=== PATIENT | male | born 1990 | race Caucasian/White ===

== ENCOUNTER → 2021-06-13 12:52 | Outpatient (BNVA) | payer OTHER, SELFPAY | PROVIDERS: PCP Physician Assistant; Visit Provider Urology ==

== ENCOUNTER 2021-06-15 10:06 | Outpatient (REF) | payer OTHER, SELFPAY ==
[2021-06-15 10:54] LABS: Hematocrit 49.6 % (42-52); Hemoglobin 17.3 g/dl (14.0-18.0); Mean Corpuscular HGB Conc 34.9 g/dl (31.0-36.0); Mean Corpuscular Hemoglobin 30.8 pg (27.0-33.0); Mean Corpuscular Volume 88.4 fL (80-98); Mean Platelet Volume 9.4 fL (9.4-12.4); Platelet Count 211 X10*3/uL (160-400); Red Blood Count 5.61 X10*6/uL (4.60-5.80); Red Cell Distribution Width 11.3 % (11.0-16.0); White Blood Count 7.9 X10*3/uL (4.8-10.8)
[2021-06-15 11:17] LABS: Alanine Aminotransferase 27 U/L (0-40); Albumin Level 4.7 g/dL (3.5-5.0); Alkaline Phosphatase 94 U/L (39-117); Anion Gap 11 (12-20); Aspartate Amino Transferase 24 U/L (5-37); Bilirubin Total 1.5 mg/dL (0.0-1.0); Blood Urea Nitrogen 18 mg/dL (9-16); Calcium 10.1 mg/dL (8.4-10.2); Carbon Dioxide 29 mmol/L (22-29); Chloride 106 mmol/L (96-108); Cholesterol 217 mg/dL; Estimated Glomerular Filt Rate > 60; Glucose Fasting 76 mg/dL (60-99); HDL Cholesterol 56 mg/dL; LDL Cholesterol Calculated 146 mg/dl; Potassium 5.5 mmol/L (3.3-5.1); Sodium 140 mmol/L (135-145); Total Protein 7.4 g/dL (6.5-8.0); Triglycerides 76 mg/dL
[2021-06-15 11:26] LABS: Estimated Average Glucose 97 mg/dL
[2021-06-15 11:38] LABS: TSH reflex Free T4 0.48 uIU/mL (0.32-4.0)
[2021-06-16 08:31] LABS: Lyme Abs Screen <0.90 index
== END 2021-06-15 10:07 | disposition home or self-care (01) ==
LOC: HO.LAB 10:06
PROVIDERS: PCP Physician Assistant; Visit Provider Physician Assistant
DX: Z13.29 Encounter for screening for other suspected endocrine disorder (principal); Z13.220 Encounter for screening for lipoid disorders; R42 Dizziness and giddiness; I10 Essential (primary) hypertension
CPT/HCPCS: 36415; 80053; 80061; 83036; 84443; 85027; 86617; 86618

== ENCOUNTER → 2021-10-11 10:42 | Outpatient (BNVA) | payer OTHER, SELFPAY | PROVIDERS: PCP Physician Assistant; Visit Provider Urology | DX: Z30.2 Encounter for sterilization (principal); F41.8 Other specified anxiety disorders | CPT/HCPCS: 55250 ==

== ENCOUNTER → 2022-01-03 15:06 | Outpatient (BNVA) | payer OTHER, SELFPAY | PROVIDERS: PCP Physician Assistant; Visit Provider Urology | DX: F41.8 Other specified anxiety disorders (principal) ==

== ENCOUNTER 2022-01-05 07:15 | Outpatient (REF) | payer OTHER, SELFPAY ==
--- NOTE | ~2022-01-05 | CT_ITS ---
CT HEAD WITHOUT CONTRAST CLINICAL INFORMATION: Disorders of vestibular function. COMPARISON: Head CT 03/05/2010. TECHNIQUE: Contiguous axial imaging was performed from the skull base to vertex without intravenous administration of contrast. This CT examination was performed using dose optimization techniques as appropriate, variously including the following: *Automated exposure control *Adjustment of mA and/or kV according to patient size (this includes techniques or standardized protocols for targeted exams where dose is matched to indication/reason for exam; i.e. extremities or head) *Use of iterative reconstruction technique FINDINGS: There is no intracranial hemorrhage, hydrocephalus, extra-axial surface collection, midline shift, or other herniation pattern. Silverio to white matter differentiation is diffusely maintained without evidence of an evolved acute territorial infarct. The basilar cisterns are preserved. No significant soft tissue abnormality. No acute osseous abnormality. The paranasal sinuses and the mastoid air cells are well aerated. CT/CT head/brain wo con IMPRESSION: No acute intracranial abnormality.
== END 2022-01-05 07:16 | disposition home or self-care (01) ==
LOC: HO.CT 07:15
PROVIDERS: Visit Provider Nurse Practitioner Family
DX: H55.00 Unspecified nystagmus (principal); H81.13 Benign paroxysmal vertigo, bilateral; H81.8X9 Other disorders of vestibular function, unspecified ear
CPT/HCPCS: 70450

== ENCOUNTER 2022-01-05 09:48 | Outpatient (RCR) | payer OTHER, SELFPAY ==
[2022-01-05 10:01] VITALS: BP 140/93; PULSE 59
--- NOTE | 2022-01-05 11:38 | MHC.PT.EP ---
[facility] [place] Office [place] Office [place] Office [address] Jenniffer De Leon [address] [phone] F: [phone] F: [phone] F: [phone] F: [phone] Physical Therapy Plan of Care Date of Evaluation: Date of Surgery: NA Diagnosis: Benign paroxysmal vertigo Assessment: Ovidio is a 31 year old male who is referred to PT for benign paroxysmal positional vertigo . Pt reports of having symptoms of off balance for the last 9 months. He has been cleared by the ENT. He was referred to PT about 6 months back where he performed VOR exercises. He however reports of not having much improvement. On PT examination he presents with intact saccades, smooth purusit, visual tracking, head thrust and DVA. He presented with good static and dynamic balance- no LOB noted however he reported of having increased dizziness with head turns. He was negative for nystagmus and vertigo in B [place] and B roll test. He is currently independent with all ADLS and work activities. He would benefit from skilled PT to address the aforementioned impairments and improve tolerance to functional activities. Frequency and Duration: The patient will be seen 1/week for 5 weeks. Short Term Goals: 1. Pt will have 50% decrease in symptoms at rest which will enable him to have a conversation with his in 2 weeks. 2. Pt will be able to walk up and down the [place] without any dizziness in 3 weeks. [employer]chid [employer] Goals: 1. Pt will be able to walk in the grocery store without symptoms of imbalance in 4 weeks. 2. Pt will return to PLOF in 5 weeks. Treatment Plan: Modalities to reduce pain, spasms and effusion. Manual therapy to restore motion and function. Therapeutic exercise to improve strength and flexibility. Neuromuscular re-education for posture and balance. Therapeutic activities to return to functional activities of daily living. Electronically signed by: Veronica Mena PT DPT Please sign and return to therapist. Thank you for your referral.
--- NOTE | 2022-02-01 15:44 | MHC.PT.DC ---
[facility] [place] Office [place] Office [place] Office [address] Jenniffer De Leon [address] [phone] F: [phone] F: [phone] F: [phone] F: [phone] Physical Therapy Discharge Report Diagnosis: Benign paroxysmal vertigo Date of Surgery: NA Date of Evaluation: 01/05/22 Date of Discharge: 02/01/22 Treatments to Date: 1 Cancellations to Date: 0 No Shows to Date: 0 Discharge Status: Patient Elected to Stop Discharge Summary: Ovidio stated that he had no change in symptoms with exercise. He had a head CT scan which was normal. Ovidio feels that his symptoms are probably coming from his eyes (probably due to vision issues). Due to this he elected to stop PT. He however stated that he will be continuing his HEPs, Electronically signed by: Veronica Mena PT DPT Please sign and return to therapist. Thank you for your referral.
== END 2022-02-01 15:44 | disposition home or self-care (01) ==
LOC: HO.PT 09:48
PROVIDERS: PCP Physician Assistant; Visit Provider Nurse Practitioner Family
DX: H81.13 Benign paroxysmal vertigo, bilateral (principal)
CPT/HCPCS: 97112; 97161

== ENCOUNTER 2023-12-26 11:38 | Outpatient (AMB) | payer OTHER, SELFPAY ==
--- NOTE | 2023-12-26 11:55 | MHC.PC.OV ---
Vital Signs 12/26/23 11:58 Height 6 ft Weight 170 lb 2 oz BMI 23.1 BP 126/82 Blood Pressure Location Lt brachial Position Sitting Pulse 80 Pulse Source Pulse Oximeter Pulse Oximetry (%) 97 Oxygen Delivery Method Room Air Intake Visit Reasons: right testicle pain Intake Note: The patient presents with bilateral testicle pain persisting for one day, exacerbated by movement. Data Lead Required: No Accompanied by: Self / Same As Patient Allergies cefaclor [From Ceclor] Allergy (Unknown, Verified 12/26/23 13:34) HIVES penicillamine Allergy (Unknown, Verified 12/26/23 13:34) hives Medication List - Last Reconciled 12/26/23 by Alirio Stanley PA-C No Known Home Meds Tobacco use date assessed: 12/26/23 Dental Screening Dental Screen Date: 12/26/23 Did you have a dental visit in the last 12 months?: Yes Did you have a dental problem in the last 6 months where you did not have access to dental care?: No Was dental information given to patient?: Patient has dentist HPI right testicle pain HPI Details Patient is a 33-year-old male here today for problem visit. He reports he has been having right testicular pain over 48 hours. He reports he may have lifted something wrong in sprain of ligament in the groin testicular region. He denies any issues with urination, ejaculation or erections. He reports he does not have any pain until he puts pressure on the right aspect of his scrotum. He denies any edema or erythema to his scrotum. [facility] Medical History Ulnar shaft fracture Surgical History History of vasectomy History of surgery Family History Father No problems noted. Mother No problems noted. Maternal Grandfather Lung cancer Maternal Grandfather Mental health disorder Paternal Uncle Substance use disorder Paternal Grandfather Substance use disorder Social History Housing: House Patient Tobacco Use Status: Former Tobacco user Tobacco use type: Cigarette Cigarettes Per Day: 10 e-Cigarette/Vaping Use: Never Used Second Hand Smoke Exposure: Yes service: No Current occupational status: employed Cognitive needs: No Hearing needs: No Vision needs: No Questionnaire PHQ-9 Over the last 2 weeks, how often have you been bothered by any of the following problems? 1. Little interest or pleasure in doing things: not at all 2. Feeling down, depressed, or hopeless: not at all 3. Trouble falling or staying asleep, or sleeping too much: not at all 4. Feeling tired or having little energy: not at all 5. Poor appetite or overeating: not at all 6. Feeling bad about yourself - or that you are a failure or have let yourself or your family down: not at all 7. Trouble concentrating on things, such as reading the newspaper or watching television: not at all 8. Moving or speaking so slowly that other people could have noticed. Or the opposite - being so fidgety or restless that you have been moving around a lot more than usual: not at all 9. Thoughts that you would be better off or of hurting yourself in some way: not at all Total score: 0 Depression Screening Interpretation: Negative Depression Screening Done: Yes 93331 - PHQ-9 Billing: Yes Source: Developed by Drs. Alejo Hilton, Mikaela Lawrence, Sagar Stein and colleagues, with an educational gabriel from [employer]. Thrive Questionnaire Date Thrive assessed: 12/26/23 I am a: Patient What is your living situation today?: I have a steady place to live Within the past 12 months, did the food you bought not last and you didn't have the money to get more?: Never true Within the past 12 months, did you worry whether your food would run out before you got money to buy more?: Never true Do you have trouble paying for medicines?: No Do you have trouble getting transportation to medical appointments?: No Do you have trouble paying your heating and electricity bill?: No Do you have trouble taking care of your child, family member or friend?: No Do you have trouble with day-to-day activities such as bathing, preparing meals, shopping, managing finances, etc.?: No Are you currently unemployed and looking for a job?: No Are you interested in more education?: No Please select the resources that you would like help with: None Currently or been in a relationship where the following occur: no concerns reported THRIVE Score: 0 AUDIT C Alcohol Use Questionnaire (AUDIT-C) 1. How often do you have a drink containing alcohol?: Never 3. How often do you have six or more drinks on one occasion?: Never Total Score: 0 DEMETRA-7 AMB Questionnaire DEMETRA-7 Date DEMETRA - 7 assessed: 12/26/23 Feeling nervous, anxious, or on edge: 0 = Not at all Not being able to stop or control worryin = Not at all Worrying too much about different things: 0 = Not at all Trouble relaxin = Not at all Being so restless that it is hard to sit still: 0 = Not at all Becoming easily annoyed or irritable: 0 = Not at all Feeling afraid as if something awful might happen: 0 = Not at all Total DEMETRA-7 score (0-4 normal; 5-9 mild; 10-14 moderate; 15-21 severe): 0 Source: Developed by Drs. Alejo Hilton, Mikaela Lawrence, Sagar Stein and colleagues, with an educational gabriel from [employer]. DEMETRA-7 Assessment Billing DEMETRA-7 Assessment Tool: DEMETRA-7 Assessment 29372 Review of Systems Const Denies headache(s) Eyes Denies loss of vision ENT Denies vertigo, Denies dizziness, Denies headache(s) and Denies sore throat Card Denies chest pain, Denies leg edema and Denies lightheadedness Resp Denies cough, Denies hemoptysis and Denies wheezing GI Denies abdominal pain, Denies melena, Denies constipation, Denies diarrhea and Denies vomiting Denies dysuria, Denies urinary frequency and Denies urinary urgency Musc Denies arthralgias, Denies joint swelling, Denies numbness and Denies tingling Neuro Denies Abnormal speech present, Denies behavioral changes, Denies vertigo, Denies dizziness, Denies headache(s), Denies loss of vision, Denies memory loss, Denies numbness and Denies tingling Psych Denies anxiety, Denies behavioral changes, Denies depression, Denies memory loss and Denies panic attacks Art/Lymph Denies easy bleeding and Denies easy bruising Aller/Immun Denies wheezing Physical exam (Primary Care) Vital Signs: Last Vital Signs Pulse 80 12/26/23 11:58 BP 126/82 12/26/23 11:58 Pulse Ox 97 12/26/23 11:58 Oxygen Delivery Method Room Air 12/26/23 11:58 BMI result Body Mass Index 23.1 Tobacco/Smoking Status: Tobacco use Status Tobacco use date assessed 12/26/23 12/26/23 12:05 Patient Tobacco Use Status Former Tobacco user 12/26/23 12:05 Tobacco use type Cigarette 12/26/23 11:56 e-Cigarette/Vaping Use Never Used 12/26/23 11:56 PHQ-9: PHQ-9 Score PHQ-9: Total score 0 12/26/23 12:14 Depression Screening Interpretation: Negative Thrive Assessment: Date of Thrive Assessment Date Thrive assessed 12/26/23 12/26/23 12:05 Currently or been in a relationship where the following occur: no concerns reported Const General: healthy appearing, no acute distress, alert and awake Nutritional Appearance: well nourished Orientation/consciousness: oriented to person, oriented to place and oriented to time HENMT Ears: TM's normal bilaterally General nose exam: Normal nasal mucous membranes and turbinates present Eyes Conjunctivae: conjunctivae normal Sclerae: sclerae normal Pupils: Equal, round and reactive pupils present Neck Neck: Yes no lymphadenopathy and Yes no JVD Thyroid: Thyroid normal Carotids: no bruits Resp Effort & Inspection: normal respiratory effort and not tachypneic Auscultation: no crackles, no rales, no rhonchi and no wheezes Cardio Rate: regular rate Rhythm: regular rhythm Heart sounds: no murmurs and normal S1 and S2 GI Palpation (GI): Soft to palpation, nontender, no hepatomegaly and no splenomegaly Auscultation: normal bowel sounds Skin General skin exam: no rashes or lesions noted and dry skin Neuro General: oriented to person, oriented to place and oriented to time Cranial nerves: Yes Equal, round and reactive pupils present Speech: No Abnormal speech present Gait exam (Neuro): Normal gait present Motor exam (neuro): no tremor noted Extrem Right upper extremity: full ROM Left upper extremity: full ROM Right lower extremity: full ROM; no edema Left lower extremity: full ROM; no edema Psych Mental Status: mental status grossly normal Speech and movement: Normal speech and movement present Affect: normal affect Attitude: cooperative Thought process: Normal thought process present Assessment and Plan Assessment & Plan (1) Scrotal pain: Code(s): N50.82 - Scrotal pain Plan: Due to patient's presenting symptoms and history most likely suffered a ligament strain due to lifting. He otherwise denies any urination or ejaculatory issues. No sustain scrotal pain or notable swelling or erythema to the scrotum. Will watch and wait at this time and consider a scrotal ultrasound. Of note patient did have vasectomy procedure in the past Orders: Orders Comprehensive Terry. Panel Fast Today Z13.1 - Encounter for screening for diabetes mellitus Coding Level of Care Code Est Pt Level 3 (83275) Diagnoses Scrotal pain N50.82 Additional Codes DEMETRA-7 Assessment Billing - DEMETRA-7 Assessment Tool: DEMETRA-7 Assessment 84971 ([id number])
[2023-12-26 11:58] VITALS: BP 126/82; PULSE 80; O2SAT 97; BMI 23.1
== END 2023-12-26 12:22 | disposition home or self-care (01) ==
PROVIDERS: PCP Physician Assistant; Visit Provider Physician Assistant
DX: N50.82 Scrotal pain (principal)
CPT/HCPCS: 99213

== ENCOUNTER 2024-08-18 07:55 | Outpatient (AMB) | payer BC, SELFPAY ==
--- NOTE | 2024-08-18 08:06 | MHC.PC.OV ---
Vital Signs 08/18/24 08:08 Height 6 ft Weight 180 lb 4 oz BMI 24.4 BP 140/60 H Blood Pressure Location Lt brachial Position Sitting Pulse 68 Pulse Source Pulse Oximeter Pulse Oximetry (%) 98 Oxygen Delivery Method Room Air Intake Visit Reasons: Annual PE Intake Note: Patient is here today for a physical. Patient Services Assistant Required: No Manager Telecom: Not Required per policy Accompanied by: Self / Same As Patient Allergies cefaclor [From Ceclor] Allergy (Unknown, Verified 08/18/24 08:13) HIVES penicillamine Allergy (Unknown, Verified 08/18/24 08:13) hives Medication List - Last Reconciled 08/18/24 by Alirio Stanley PA-C No Known Home Meds Tobacco use date assessed: 08/18/24 Dental Screening Dental Screen Date: 12/26/23 HPI Annual PE HPI Details Patient is a 34-year-old male here today for a routine annual physical. .. Former smoker: He reports he quit smoking about a year ago and feels great. Has gained weight since he has stopped smoking. Otherwise no other physical complaints at this time. Vaccines: Up-to-date with tetanus, up-to-date with flu PFSH Medical History Ulnar shaft fracture Surgical History History of vasectomy History of surgery Family History Father No problems noted. Mother No problems noted. Maternal Grandfather Lung cancer Maternal Grandfather Mental health disorder Paternal Uncle Substance use disorder Paternal Grandfather Substance use disorder Social History (Updated 08/18/24 @ 08:16 by Alirio Stanley PA-C) Housing: House Alcohol intake: never Patient Tobacco Use Status: Former Tobacco user Tobacco use type: Cigarette e-Cigarette/Vaping Use: Never Used Second Hand Smoke Exposure: Yes service: No Current occupational status: employed Cognitive needs: No Hearing needs: No Vision needs: No Questionnaire PHQ-9 Over the last 2 weeks, how often have you been bothered by any of the following problems? 1. Little interest or pleasure in doing things: not at all 2. Feeling down, depressed, or hopeless: not at all 3. Trouble falling or staying asleep, or sleeping too much: not at all 4. Feeling tired or having little energy: not at all 5. Poor appetite or overeating: not at all 6. Feeling bad about yourself - or that you are a failure or have let yourself or your family down: not at all 7. Trouble concentrating on things, such as reading the newspaper or watching television: not at all 8. Moving or speaking so slowly that other people could have noticed. Or the opposite - being so fidgety or restless that you have been moving around a lot more than usual: not at all 9. Thoughts that you would be better off or of hurting yourself in some way: not at all Total score: 0 Depression Screening Interpretation: Negative Depression Screening Done: Yes 23051 - PHQ-9 Billing: Yes Source: Developed by Drs. Alejo Hilton, Mikaela Lawrence, Sagar Stein and colleagues, with an educational gabriel from [employer]. Thrive Questionnaire Date Thrive assessed: 08/18/24 I am a: Patient What is your living situation today?: I have a steady place to live Within the past 12 months, did the food you bought not last and you didn't have the money to get more?: Never true Within the past 12 months, did you worry whether your food would run out before you got money to buy more?: Never true Do you have trouble paying for medicines?: No Do you have trouble getting transportation to medical appointments?: No Do you have trouble paying your heating and electricity bill?: No Do you have trouble taking care of your child, family member or friend?: No Do you have trouble with day-to-day activities such as bathing, preparing meals, shopping, managing finances, etc.?: No Are you currently unemployed and looking for a job?: No Are you interested in more education?: No Please select the resources that you would like help with: None Currently or been in a relationship where the following occur: No concerns reported THRIVE Score: 0 AUDIT C Alcohol Use Questionnaire (AUDIT-C) 1. How often do you have a drink containing alcohol?: Never Total Score: 0 DEMETRA-7 AMB Questionnaire DEMETRA-7 Date DEMETRA - 7 assessed: 08/18/24 Feeling nervous, anxious, or on edge: 0 = Not at all Not being able to stop or control worryin = Not at all Worrying too much about different things: 0 = Not at all Trouble relaxin = Not at all Being so restless that it is hard to sit still: 0 = Not at all Becoming easily annoyed or irritable: 0 = Not at all Feeling afraid as if something awful might happen: 0 = Not at all Total DEMETRA-7 score (0-4 normal; 5-9 mild; 10-14 moderate; 15-21 severe): 0 Source: Developed by Drs. Alejo Hilton, Mikaela Lawrence, Sagar Stein and colleagues, with an educational gabriel from [employer]. DEMETRA-7 Assessment Billing DEMETRA-7 Assessment Tool: DEMETRA-7 Assessment 30344 Review of Systems Const Denies body aches, Denies chills, Denies excessive sweating, Denies fatigue, Denies fever(s) and Denies headache(s) Eyes Denies blurry vision ENT Denies dysphagia, Denies vertigo, Denies dizziness, Denies headache(s), Denies hearing loss and Denies tinnitus Card Denies chest pain, Denies chest pain with activity, Denies syncope, Denies irregular heart rhythm and Denies dyspnea Resp Denies chest congestion, Denies cough, Denies hemoptysis, Denies dyspnea and Denies wheezing GI Denies abdominal pain, Denies melena, Denies hematochezia, Denies coffee ground emesis, Denies dysphagia, Denies diarrhea, Denies nausea and Denies vomiting Denies difficulty urinating, Denies dysuria, Denies urinary frequency, Denies urinary hesitancy and Denies urinary urgency Musc Denies arthralgias, Denies limited range of motion, Denies muscle cramps and Denies muscle weakness Skin/Breast Denies rash and Denies skin ulcer Neuro Denies Abnormal speech present, Denies confusion, Denies vertigo, Denies dizziness, Denies syncope, Denies headache(s), Denies memory loss and Denies seizure-like activity Psych Denies anxiety, Denies confusion, Denies depression, Denies memory loss, Denies panic attacks and Denies paranoia Endo Denies excessive sweating, Denies fatigue, Denies flushing, Denies polydipsia and Denies polyuria Aller/Immun Denies wheezing Physical exam (Primary Care) Vital Signs: Last Vital Signs Pulse 68 08/18/24 08:08 BP 140/60 H 08/18/24 08:08 Pulse Ox 98 08/18/24 08:08 Oxygen Delivery Method Room Air 08/18/24 08:08 BMI result Body Mass Index 24.4 Tobacco/Smoking Status: Tobacco use Status Tobacco use date assessed 08/18/24 08/18/24 08:11 Patient Tobacco Use Status Former Tobacco user 08/18/24 08:11 Tobacco use type Cigarette 08/18/24 08:11 e-Cigarette/Vaping Use Never Used 08/18/24 08:11 PHQ-9: PHQ-9 Score PHQ-9: Total score 0 08/18/24 08:11 Depression Screening Interpretation: Negative Thrive Assessment: Date of Thrive Assessment Date Thrive assessed 08/18/24 08/18/24 08:11 Currently or been in a relationship where the following occur: No concerns reported Const General: cooperative, comfortable, no acute distress, alert and awake; No confusion Orientation/consciousness: oriented to person, oriented to place, patient oriented x3 and No confusion HENMT Head: Yes normocephalic Ears: external ears normal and TM's normal bilaterally Face and sinus: No sinus tenderness Mouth: Normal oral and palatal mucosa present and tongue normal Teeth and gingiva: dentition normal and gingiva normal Throat: Yes posterior oropharynx normal, Yes tonsils normal and Yes uvula midline Eyes Conjunctivae: conjunctivae normal Sclerae: sclerae normal Pupils: Equal, round and reactive pupils present EOM: EOMs intact bilaterally Direct Ophthalmoscopy: No no photophobia Neck Neck: Yes no lymphadenopathy, No tender and Yes no JVD Thyroid: Thyroid normal Carotids: no bruits Chest Chest palpation & inspection: no tenderness Resp Effort & Inspection: normal respiratory effort, no audible wheezes, not labored and no stridor Auscultation: no crackles, no rales, no rhonchi and no wheezes Cardio Jugular venous distension: no JVD Rate: regular rate, not bradycardic and not tachycardic Rhythm: regular rhythm Bruits: no carotid bruits Peripheral pulses: Peripheral pulses 2+ throughout GI Inspection: Yes normal to inspection, No abdominal wall ecchymosis and No visible herniation Palpation (GI): Soft to palpation, nontender, no guarding, not rigid and No hepatosplenomegaly present Auscultation: normoactive bowel sounds General: Yes no CVA tenderness Back/Spine/Pelvis Back: no CVA tenderness and No back tenderness Cervical Spine: cervical ROM normal Thoracic/Lumbar Spine: thoracic and lumbar spine normal to inspection, straight leg raise negative bilaterally, No thoraco-lumbar ROM limited and No lumbar spinal tenderness Skin Lesions: no lesions Rashes: no rashes Wounds: no wounds Neuro General: oriented to person, oriented to place, patient oriented x3, CN's II-XI intact bilaterally and No confusion Cranial nerves: Yes Equal, round and reactive pupils present and Yes Normal accommodation reflex present Cognition (Neuro): normal cognition Speech: No Abnormal speech present Gait exam (Neuro): Normal gait present Motor exam (neuro): 5/5 motor strength present throughout Extrem Right upper extremity: full ROM; no cyanosis Left upper extremity: full ROM; no cyanosis Right lower extremity: no edema Left lower extremity: no edema Psych Appearance: grossly normal Mental Status: mental status grossly normal Affect: normal affect Attitude: cooperative Thought process: Normal thought process present Coding Level of Care Code Est Pt Prev Care 18-39y(66240) Diagnoses Annual physical exam Z00.00 Screening for diabetes mellitus (DM) Z13.1 Additional Codes PHQ-9 - 51911 - PHQ-9 Billing: Yes ([id number]) DEMETRA-7 Assessment Billing - DEMETRA-7 Assessment Tool: DEMETRA-7 Assessment 21189 ([id number]) Assessment & Plan Assessment & Plan (1) Annual physical exam: Code(s): Z00.00 - Encounter for general adult medical examination without abnormal findings Category: Medical Plan: As per HPI (2) Screening for diabetes mellitus (DM): Code(s): Z13.1 - Encounter for screening for diabetes mellitus Category: Medical Plan: As per HPI
[2024-08-18 08:08] VITALS: BP 140/60; PULSE 68; O2SAT 98; BMI 24.4
== END 2024-08-18 08:30 | disposition home or self-care (01) ==
PROVIDERS: PCP Physician Assistant; Visit Provider Physician Assistant
DX: Z00.00 Encounter for general adult medical examination without abnormal findings (principal); Z13.1 Encounter for screening for diabetes mellitus

== ENCOUNTER → 2024-08-18 07:55 | Outpatient (BNVA) | payer BC, SELFPAY | PROVIDERS: PCP Physician Assistant; Visit Provider Physician Assistant | DX: Z00.00 Encounter for general adult medical examination without abnormal findings (principal); Z87.891 Personal history of nicotine dependence | CPT/HCPCS: 96127 ==

== ENCOUNTER 2025-01-19 13:56 | Outpatient (AMB) | payer BC, SELFPAY ==
--- NOTE | 2025-01-19 13:58 | A.OFFPC_ITS ---
Vital Signs 3 01/19/25 13:59 Height 6 ft Weight 176 lb 6 oz BMI 23.9 BP 142/82 H Blood Pressure Location Lt brachial Position Sitting Pulse 70 Pulse Source Pulse Oximeter Temp 97.1 F Temp Source Temporal Artery Scan Pulse Oximetry (%) 98 Oxygen Delivery Method Room Air Intake Visit Reasons: skin irritation Ed Transporter Required: No Accompanied by: Self / Same As Patient Allergies cefaclor [From Ceclor] Allergy (Unknown, Verified 01/19/25 14:07) HIVES penicillamine Allergy (Unknown, Verified 01/19/25 14:07) hives Medication List - Last Reconciled 01/19/25 by Alirio Stanley PA-C No Known Home Meds Tobacco use date assessed: 01/19/25 Dental Screening Dental Screen Date: 01/19/25 Did you have a dental visit in the last 12 months?: Yes Did you have a dental problem in the last 6 months where you did not have access to dental care?: No Was dental information given to patient?: Patient has dentist HPI skin irritation 2 HPI0 Details The patient is a 34-year-old male presenting with a skin rash. Approximately two months ago, he noticed a rash in the top of his gluteal cleft. Initially attributed to chafing from weight gain post-smoking cessation, the rash comprises two small, circular lesions. Despite using clotrimazole cream, the rash persists, with itchiness exacerbated by heat and alleviated by rest. Additionally, the patient has experienced an incomplete bowel movement sensation recently. Consuming two energy drinks daily, he observes this feeling about an hour post-defecation, involving further wiping. His stools are generally formed but loose. Reducing energy drink intake correlated with symptom improvement. [facility]LY [facility], [facility] Medical History Ulnar shaft fracture Surgical History History of vasectomy History of surgery Family History Father No problems noted. Mother No problems noted. Maternal Grandfather Lung cancer Maternal Grandfather Mental health disorder Paternal Uncle Substance use disorder Paternal Grandfather Substance use disorder Social History Housing: House Alcohol intake: never Patient Tobacco Use Status: Former Tobacco user Tobacco use type: Cigarette e-Cigarette/Vaping Use: Never Used Second Hand Smoke Exposure: Yes service: No Current occupational status: employed Cognitive needs: No Hearing needs: No Vision needs: No Questionnaire PHQ-9 Over the last 2 weeks, how often have you been bothered by any of the following problems? 1. Little interest or pleasure in doing things: not at all 2. Feeling down, depressed, or hopeless: not at all 3. Trouble falling or staying asleep, or sleeping too much: not at all 4. Feeling tired or having little energy: not at all 5. Poor appetite or overeating: not at all 6. Feeling bad about yourself - or that you are a failure or have let yourself or your family down: not at all 7. Trouble concentrating on things, such as reading the newspaper or watching television: not at all 8. Moving or speaking so slowly that other people could have noticed. Or the opposite - being so fidgety or restless that you have been moving around a lot more than usual: not at all 9. Thoughts that you would be better off or of hurting yourself in some way: not at all Total score: 0 Depression Screening Interpretation: Negative Depression Screening Done: Yes 94675 - PHQ-9 Billing: Yes Source: Developed by Drs. Alejo Hilton, Mikaela Lawrence, Sagar Stein and colleagues, with an educational gabriel from [employer]. Thrive Questionnaire Date Thrive assessed: 01/19/25 I am a: Patient What is your living situation today?: I have a steady place to live Within the past 12 months, did the food you bought not last and you didn't have the money to get more?: Never true Within the past 12 months, did you worry whether your food would run out before you got money to buy more?: Never true Do you have trouble paying for medicines?: No Do you have trouble getting transportation to medical appointments?: No Do you have trouble paying your heating and electricity bill?: No Do you have trouble taking care of your child, family member or friend?: No Do you have trouble with day-to-day activities such as bathing, preparing meals, shopping, managing finances, etc.?: No Are you currently unemployed and looking for a job?: No Are you interested in more education?: No Please select the resources that you would like help with: None Currently or been in a relationship where the following occur: No concerns reported THRIVE Score: 0 AUDIT C Alcohol Use Questionnaire (AUDIT-C) 1. How often do you have a drink containing alcohol?: Never 3. How often do you have six or more drinks on one occasion?: Never Total Score: 0 DEMETRA-7 AMB Questionnaire DEMETRA-7 Date DEMETRA - 7 assessed: 01/19/25 Feeling nervous, anxious, or on edge: 0 = Not at all Not being able to stop or control worryin = Not at all Worrying too much about different things: 0 = Not at all Trouble relaxin = Not at all Being so restless that it is hard to sit still: 0 = Not at all Becoming easily annoyed or irritable: 0 = Not at all Feeling afraid as if something awful might happen: 0 = Not at all Total DEMETRA-7 score (0-4 normal; 5-9 mild; 10-14 moderate; 15-21 severe): 0 Source: Developed by Drs. Alejo Hilton, Mikaela Lawrence, Sagar Stein and colleagues, with an educational gabriel from [employer]. DEMETRA-7 Assessment Billing DEMETRA-7 Assessment Tool: DEMETRA-7 Assessment 60738 Review of Systems Const Denies headache(s) Eyes Denies loss of vision ENT Denies vertigo, Denies dizziness, Denies headache(s) and Denies sore throat Card Denies chest pain, Denies leg edema and Denies lightheadedness Resp Denies cough, Denies hemoptysis and Denies wheezing GI Denies abdominal pain, Denies melena, Denies constipation, Denies diarrhea and Denies vomiting Denies dysuria, Denies urinary frequency and Denies urinary urgency Musc Denies arthralgias, Denies joint swelling, Denies numbness and Denies tingling Neuro Denies Abnormal speech present, Denies behavioral changes, Denies vertigo, Denies dizziness, Denies headache(s), Denies loss of vision, Denies memory loss, Denies numbness and Denies tingling Psych Denies anxiety, Denies behavioral changes, Denies depression, Denies memory loss and Denies panic attacks Art/Lymph Denies easy bleeding and Denies easy bruising Aller/Immun Denies wheezing Physical exam (Primary Care) Vital Signs: Last Vital Signs Temp 97.1 F 01/19/25 13:59 Pulse 70 01/19/25 13:59 BP 142/82 H 01/19/25 13:59 Pulse Ox 98 01/19/25 13:59 Oxygen Delivery Method Room Air 01/19/25 13:59 BMI result Body Mass Index 23.9 Tobacco/Smoking Status: Tobacco use Status Tobacco use date assessed 01/19/25 01/19/25 13:59 Patient Tobacco Use Status Former Tobacco user 01/19/25 13:59 Tobacco use type Cigarette 01/19/25 13:59 e-Cigarette/Vaping Use Never Used 01/19/25 13:59 PHQ-9: PHQ-9 Score PHQ-9: Total score 0 01/19/25 13:59 Depression Screening Interpretation: Negative Thrive Assessment: Date of Thrive Assessment Date Thrive assessed 01/19/25 01/19/25 13:59 Currently or been in a relationship where the following occur: No concerns reported Const General: healthy appearing, no acute distress, alert and awake Nutritional Appearance: well nourished Orientation/consciousness: oriented to person, oriented to place and oriented to time HENMT Ears: TM's normal bilaterally General nose exam: Normal nasal mucous membranes and turbinates present Eyes Conjunctivae: conjunctivae normal Sclerae: sclerae normal Pupils: Equal, round and reactive pupils present Neck Neck: Yes no lymphadenopathy and Yes no JVD Thyroid: Thyroid normal Carotids: no bruits Resp Effort & Inspection: normal respiratory effort and not tachypneic Auscultation: no crackles, no rales, no rhonchi and no wheezes Cardio Rate: regular rate Rhythm: regular rhythm Heart sounds: no murmurs and normal S1 and S2 GI Palpation (GI): Soft to palpation, nontender, no hepatomegaly and no splenomegaly Auscultation: normal bowel sounds Back/Spine/Pelvis Other: Skin General skin exam: no rashes or lesions noted and dry skin Neuro General: oriented to person, oriented to place and oriented to time Cranial nerves: Yes Equal, round and reactive pupils present Speech: No Abnormal speech present Gait exam (Neuro): Normal gait present Motor exam (neuro): no tremor noted Extrem Right upper extremity: full ROM Left upper extremity: full ROM Right lower extremity: full ROM; no edema Left lower extremity: full ROM; no edema Psych Mental Status: mental status grossly normal Speech and movement: Normal speech and movement present Affect: normal affect Attitude: cooperative Thought process: Normal thought process present Coding Level of Care Code Est Pt Level 3 (46022) Diagnoses Dermatitis L30.9 Fecal incontinence with incomplete defecation R15.9; R15.0 Additional Codes DEMETRA-7 Assessment Billing - DEMETRA-7 Assessment Tool: DEMETRA-7 Assessment 41991 ([id number]) PHQ-9 - 41197 - PHQ-9 Billing: Yes ([id number]) Assessment & Plan Assessment & Plan (1) Dermatitis: Code(s): L30.9 - Dermatitis, unspecified Category: Medical Plan: The persistent skin rash, unresponsive to current antifungal treatment, will be managed with a steroid-antifungal combination cream to reduce inflammation and fungal infection potential. An antifungal powder can mitigate aggravation from heat and sweat. Dermatology referral for further assessment is initiated. (2) Fecal incontinence with incomplete defecation: Code(s): R15.9 - Full incontinence of feces; R15.0 - Incomplete defecation Category: Medical Plan: This symptom may be linked to energy drink consumption. Recommending reduction to one energy drink or substitution with black coffee, alongside dietary fiber increase through Metamucil, should aid in improvement. Observational follow-up advised. Orders: Orders 2 Comprehensive Sulphur. Panel Fast Today Z13.1 - Encounter for screening for diabetes mellitus Complete Blood Count no Diff Today Z13.1 - Encounter for screening for diabetes mellitus Medications: New 2 clotrimazole-betamethasone 1-0.05 % 1 appl topical BID 30 days 45 grams 0RF L30.9 - Dermatitis, unspecified
[2025-01-19 13:59] VITALS: BP 142/82; PULSE 70; TEMP 36.2; O2SAT 98; BMI 23.9
== END 2025-01-19 14:22 | disposition home or self-care (01) ==
LOC: HO.HMCH 13:57
PROVIDERS: PCP Physician Assistant; Visit Provider Physician Assistant
DX: L30.9 Dermatitis, unspecified (principal); R15.9 Full incontinence of feces; R15.0 Incomplete defecation

== ENCOUNTER → 2025-01-19 13:56 | Outpatient (BNVA) | payer BC, SELFPAY | PROVIDERS: PCP Physician Assistant; Visit Provider Physician Assistant | DX: R15.9 Full incontinence of feces (principal); L30.9 Dermatitis, unspecified; R15.0 Incomplete defecation | CPT/HCPCS: 96127 ==

== ENCOUNTER 2025-04-05 12:47 | Outpatient (AMB) | payer BC, SELFPAY ==
[2025-04-05 12:51] VITALS: BP 102/64; PULSE 77; O2SAT 97; BMI 24.3
--- NOTE | 2025-04-05 12:51 | A.OFFPC_ITS ---
Vital Signs 04/05/25 12:51 Height 6 ft Weight 179 lb BMI 24.3 BP 102/64 Blood Pressure Location Lt radial Position Sitting Pulse 77 Pulse Oximetry (%) 97 Intake Visit Reasons: Cracked Hands Heel Breaster Required: No Accompanied by: Self / Same As Patient Allergies cefaclor (From Ceclor) Allergy (Unknown, Verified 04/05/25 13:03) HIVES penicillamine Allergy (Unknown, Verified 04/05/25 13:03) hives Medication List - Last Reconciled 04/05/25 by Fiorella Arora PA-C clotrimazole-betamethasone 1-0.05 % 1 appl topical BID 30 days Tobacco use date assessed: 04/05/25 Dental Screening Dental Screen Date: 04/05/25 Did you have a dental visit in the last 12 months?: Yes Did you have a dental problem in the last 6 months where you did not have access to dental care?: No HPI Cracked Hands HPI Details 34-year-old male with past medical histo ry of anxiety, BPPV last seen by Jaden 12/2024 coming in for acute problem. Presenting with persistent dry and cracked skin on the hands, possibly exacerbated by occupational exposure. The condition has been ongoing since last winter, with worsening symptoms during cold weather. 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 Previous interventions include the use of various lotions such as CeraVe with limited success. The patient denies excessive hand washing but acknowledges exposure to elements like wind and rain. [facility] Medical History Ulnar shaft fracture Surgical History History of vasectomy History of surgery Family History Father No problems noted. Mother No problems noted. Maternal Grandfather Lung cancer Maternal Grandfather Mental health disorder Paternal Uncle Substance use disorder Paternal Grandfather Substance use disorder Social History Housing: House Alcohol intake: never Patient Tobacco Use Status: Former Tobacco user Tobacco use type: Cigarette e-Cigarette/Vaping Use: Never Used Second Hand Smoke Exposure: Yes service: No Current occupational status: employed Cognitive needs: No Hearing needs: No Vision needs: No Questionnaire Thrive Questionnaire Date Thrive assessed: 04/05/25 I am a: Patient What is your living situation today?: I have a steady place to live Within the past 12 months, did the food you bought not last and you didn't have the money to get more?: Never true Within the past 12 months, did you worry whether your food would run out before you got money to buy more?: Never true Do you have trouble paying for medicines?: No Do you have trouble getting transportation to medical appointments?: No Do you have trouble paying your heating and electricity bill?: No Do you have trouble taking care of your child, family member or friend?: No Do you have trouble with day-to-day activities such as bathing, preparing meals, shopping, managing finances, etc.?: No Are you currently unemployed and looking for a job?: No Are you interested in more education?: No Please select the resources that you would like help with: None Currently or been in a relationship where the following occur: No concerns reported THRIVE Score: 0 AUDIT C Alcohol Use Questionnaire (AUDIT-C) 3. How often do you have six or more drinks on one occasion?: Never Total Score: 0 DEMETRA-7 AMB Questionnaire DEMETRA-7 Date DEMETRA - 7 assessed: 04/05/25 Source: Developed by Drs. Alejo Hilton, Mikaela Lawrence, Sagar Stein and colleagues, with an educational gabriel from [employer]. Review of Systems Const Denies body aches, Denies chills and Denies fever(s) Eyes Reports no additional complaints Card Reports no additional complaints Resp Reports no additional complaints Musc Denies abnormal gait Skin/Breast Reports as per HPI Neuro Denies abnormal gait Psych Reports no additional complaints Physical exam (Primary Care) Vital Signs: Last Vital Signs Pulse 77 04/05/25 12:51 BP 102/64 04/05/25 12:51 Pulse Ox 97 04/05/25 12:51 BMI result Body Mass Index 24.3 Tobacco/Smoking Status: Tobacco use Status Tobacco use date assessed 04/05/25 04/05/25 12:55 Patient Tobacco Use Status Former Tobacco user 04/05/25 12:55 Tobacco use type Cigarette 08/11/25 12:55 e-Cigarette/Vaping Use Never Used 04/05/25 12:55 Thrive Assessment: Date of Thrive Assessment Date Thrive assessed 04/05/25 04/05/25 12:55 Currently or been in a relationship where the following occur: No concerns reported Const General: cooperative, healthy appearing, comfortable and no acute distress Orientation/consciousness: patient oriented x3 HENMT Head: Yes normocephalic Ears: hearing grossly normal bilaterally General nose exam: Normal external nose present Eyes General: appearance normal, both eyes and all related structures Conjunctivae: conjunctivae normal Neck Neck: Yes full ROM and Yes no lymphadenopathy Resp Effort & Inspection: normal respiratory effort Auscultation: clear to auscultation bilaterally, no crackles, no rales, no rhonchi and no wheezes Cardio Rate: regular rate Rhythm: regular rhythm Skin Other: Multiple areas of dry, flaky, cracked skin without evidence of infection. Few eczematous lesions on the digits of bilateral hands General skin exam: no rashes or lesions noted Neuro General: patient oriented x3 Gait exam (Neuro): Normal gait present Extrem General: Yes normal to inspection, Yes full ROM and No edema Psych Affect: normal affect Attitude: cooperative Insight: Good insight present (Psych) Judgement: Good judgement present (Psych) Coding Level of Care Code Est Pt Level 3 (03620) Diagnoses Dry skin dermatitis L85.3 Assessment & Plan Assessment & Plan (1) Dry skin dermatitis: Code(s): L85.3 - Xerosis cutis Category: Medical Plan: The patient was advised to use a thick barrier cream such as Vaseline or Aquaphor at night, applying it generously and covering the hands with socks to enhance absorption. A topical steroid cream was prescribed to be used sparingly on affected areas for no longer than two weeks to reduce inflammation for eczematous lesions. The patient was instructed to continue wearing protective gloves at work to minimize exposure to environmental elements. For maintenance, the patient was advised to use a thicker lotion like Eucerin or Working Hands after the acute phase is managed. Plan This note was constructed using voice recognition software. While every effort has been made to ensure accuracy and multi line claims adjuster, still areas may have been included sometimes these areas may affect the content or meeting of the given symptoms. Total time spent caring for the patient today was 20 minutes. This includes time spent before the visit reviewing the chart, time spent during the visit, and time spent after the visit and documentation. Patient was informed and verbally consented to the use of an ambient scribe for clinic note documentation during this visit. Medications: New triamcinolone acetonide 0.1% For no longer than 14 days at a time 1 appl topical DAILY 30 grams 0RF Discontinued clotrimazole-betamethasone 1-0.05 % Discontinued Reason: Patient no longer taking 1 appl topical BID 30 days 45 grams 0RF L30.9 - Dermatitis, unspecified
== END 2025-04-05 13:27 | disposition home or self-care (01) ==
LOC: HO.HMCH 12:48
PROVIDERS: PCP Physician Assistant
DX: L85.3 Xerosis cutis (principal)

== ENCOUNTER 2025-08-24 14:38 | Outpatient (AMB) | payer BC, SELFPAY ==
--- NOTE | 2025-08-24 14:58 | MHC.PC.OV ---
Vital Signs 08/24/25 14:59 Height 6 ft Weight 181 lb 6 oz BMI 24.6 BP 132/78 Blood Pressure Location Lt brachial Position Sitting Pulse 64 Pulse Source Pulse Oximeter Temp 97.3 F Temp Source Temporal Artery Scan Pulse Oximetry (%) 98 Oxygen Delivery Method Room Air Intake Visit Reasons: ANNUAL Intake Note: Patient is here today for a physical. 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 Concern--> has a history of ear cerumen impactions, today in office notable external canal blockages. .. Otherwise patient has no complaints, he reports he has stopped drinking energy drinks. .. Former smoker: He reports he quit smoking about a few years ago and feels great. Has gained weight since he has stopped smoking. Otherwise no other physical complaints at this time. Vaccines: Up-to-date with COVID vaccine, declines flu vaccine, needs up-to-date tetanus vaccine [facility] Medical History Ulnar shaft fracture Surgical History History of vasectomy History of surgery Family History Father No problems noted. Mother No problems noted. Maternal Grandfather Lung cancer Maternal Grandfather Mental health disorder Paternal Uncle Substance use disorder Paternal Grandfather Substance use disorder Social History Housing: House Alcohol intake: never Patient Tobacco Use Status: Former Tobacco user Tobacco use type: Cigarette e-Cigarette/Vaping Use: Never Used Second Hand Smoke Exposure: Yes service: No Current occupational status: employed Cognitive needs: No Hearing needs: No Vision needs: No Questionnaire Thrive Questionnaire Date Thrive assessed: 01/19/25 I am a: Patient What is your living situation today?: I have a steady place to live Within the past 12 months, did the food you bought not last and you didn't have the money to get more?: Never true Within the past 12 months, did you worry whether your food would run out before you got money to buy more?: Never true Do you have trouble paying for medicines?: No Do you have trouble getting transportation to medical appointments?: No Do you have trouble paying your heating and electricity bill?: No Do you have trouble taking care of your child, family member or friend?: No Do you have trouble with day-to-day activities such as bathing, preparing meals, shopping, managing finances, etc.?: No Are you currently unemployed and looking for a job?: No Are you interested in more education?: No Currently or been in a relationship where the following occur: No concerns reported THRIVE Score: 0 DEMETRA-7 AMB Questionnaire DEMETRA-7 Date DEMETRA - 7 assessed: 04/05/25 Source: Developed by Drs. Alejo Hilton, Mikaela Lawrence, Sagar Stein and colleagues, with an educational gabriel from [employer]. Review of Systems Const Denies body aches, Denies chills, Denies excessive sweating, Denies fatigue, Denies fever(s) and Denies headache(s) Eyes Denies blurry vision ENT Denies dysphagia, Denies vertigo, Denies dizziness, Denies headache(s), Denies hearing loss and Denies tinnitus Card Denies chest pain, Denies chest pain with activity, Denies syncope, Denies irregular heart rhythm and Denies dyspnea Resp Denies chest congestion, Denies cough, Denies hemoptysis, Denies dyspnea and Denies wheezing GI Denies abdominal pain, Denies melena, Denies hematochezia, Denies coffee ground emesis, Denies dysphagia, Denies diarrhea, Denies nausea and Denies vomiting Denies difficulty urinating, Denies dysuria, Denies urinary frequency, Denies urinary hesitancy and Denies urinary urgency Musc Denies arthralgias, Denies limited range of motion, Denies muscle cramps and Denies muscle weakness Skin/Breast Denies rash and Denies skin ulcer Neuro Denies Abnormal speech present, Denies confusion, Denies vertigo, Denies dizziness, Denies syncope, Denies headache(s), Denies memory loss and Denies seizure-like activity Psych Denies anxiety, Denies confusion, Denies depression, Denies memory loss, Denies panic attacks and Denies paranoia Endo Denies excessive sweating, Denies fatigue, Denies flushing, Denies polydipsia and Denies polyuria Aller/Immun Denies wheezing Physical exam (Primary Care) Vital Signs: Last Vital Signs Temp 97.3 F 08/24/25 14:59 Pulse 64 08/24/25 14:59 BP 132/78 08/24/25 14:59 Pulse Ox 98 08/24/25 14:59 Oxygen Delivery Method Room Air 08/24/25 14:59 BMI result Body Mass Index 24.6 Tobacco/Smoking Status: Tobacco use Status Tobacco use date assessed 08/24/25 08/24/25 15:03 Patient Tobacco Use Status Former Tobacco user 08/24/25 15:03 Tobacco use type Cigarette 08/24/25 15:03 e-Cigarette/Vaping Use Never Used 08/24/25 15:03 Thrive Assessment: Date of Thrive Assessment Date Thrive assessed 01/19/25 08/24/25 15:03 Currently or been in a relationship where the following occur: No concerns reported Const General: cooperative, comfortable, no acute distress, alert and awake; No confusion Orientation/consciousness: oriented to person, oriented to place, patient oriented x3 and No confusion HENMT Other: BILATERAL EAR CANALS WITH CERUMEN IMPACTION, CLEAR HAS POST EAR LAVAGE Head: Yes normocephalic Ears: external ears normal and TM's normal bilaterally Face and sinus: No sinus tenderness Mouth: Normal oral and palatal mucosa present and tongue normal Teeth and gingiva: dentition normal and gingiva normal Throat: Yes posterior oropharynx normal, Yes tonsils normal and Yes uvula midline Eyes Conjunctivae: conjunctivae normal Sclerae: sclerae normal Pupils: Equal, round and reactive pupils present EOM: EOMs intact bilaterally Direct Ophthalmoscopy: No no photophobia Neck Neck: Yes no lymphadenopathy, No tender and Yes no JVD Thyroid: Thyroid normal Carotids: no bruits Chest Chest palpation & inspection: no tenderness Resp Effort & Inspection: normal respiratory effort, no audible wheezes, not labored and no stridor Auscultation: no crackles, no rales, no rhonchi and no wheezes Cardio Jugular venous distension: no JVD Rate: regular rate, not bradycardic and not tachycardic Rhythm: regular rhythm Bruits: no carotid bruits Peripheral pulses: Peripheral pulses 2+ throughout GI Inspection: Yes normal to inspection, No abdominal wall ecchymosis and No visible herniation Palpation (GI): Soft to palpation, nontender, no guarding, not rigid and No hepatosplenomegaly present Auscultation: normoactive bowel sounds General: Yes no CVA tenderness Back/Spine/Pelvis Back: no CVA tenderness and No back tenderness Cervical Spine: cervical ROM normal Thoracic/Lumbar Spine: thoracic and lumbar spine normal to inspection, straight leg raise negative bilaterally, No thoraco-lumbar ROM limited and No lumbar spinal tenderness Skin Lesions: no lesions Rashes: no rashes Wounds: no wounds Neuro General: oriented to person, oriented to place, patient oriented x3, CN's II-XI intact bilaterally and No confusion Cranial nerves: Yes Equal, round and reactive pupils present and Yes Normal accommodation reflex present Cognition (Neuro): normal cognition Speech: No Abnormal speech present Gait exam (Neuro): Normal gait present Motor exam (neuro): 5/5 motor strength present throughout Extrem Right upper extremity: full ROM; no cyanosis Left upper extremity: full ROM; no cyanosis Right lower extremity: no edema Left lower extremity: no edema Psych Appearance: grossly normal Mental Status: mental status grossly normal Affect: normal affect Attitude: cooperative Thought process: Normal thought process present Office Procedures Cerumen Removal From which ear canal was the cerumen removed: bilateral Removal: irrigation and otoscope w/curette Notes: patient tolerated procedure well [id number] Irrigation/Lavage Immunizations Boostrix Tdap 2.5 Lf unit-8 mcg-5 Lf/0.5 mL intramuscular syringe Performing Provider: Alirio Stanley PA-C Performing Location: [facility] Administered by: EMORY Latif on 08/24/25 15:56 Dose Route Admin Location Dispensed Lot Number Expiration Date [facility] [employer] 0.5 mL IM Left Deltoid 0.5 mL [id number] 02/05/28 93589-730-80 [employer] Total Dispensed Waste 0.5 mL 0 % VIS Given Date VIS Provided VIS Publication Date 08/24/25 Single Vaccine 21 Eligibility Eligibility Date Funding Source Not [facility] Eligible 08/24/25 Private Coding Level of Care Code Est Pt Prev Care [id number]([id number]) Diagnoses Annual physical exam Z00.00 Dermatitis L30.9 Impacted cerumen, bilateral H61.23 CPT Codes Office Procedure - CPT: 79438-Apa Irrigation/Lavage ([id number]) Assessment & Plan Assessment & Plan (1) Annual physical exam: Code(s): Z00.00 - Encounter for general adult medical examination without abnormal findings Category: Medical Plan: As per HPI (2) Dermatitis: Code(s): L30.9 - Dermatitis, unspecified Category: Medical Plan: Has been diagnosed with the eczema bilateral hands and feet. He is now using Eucerin moisturizer on a daily basis which helps tremendously. (3) Impacted cerumen, bilateral: Code(s): H61.23 - Impacted cerumen, bilateral Category: Medical Plan: As per office procedure. Orders: Orders TDaP Immunization Today Z23 - Encounter for immunization
[2025-08-24 14:59] VITALS: BP 132/78; PULSE 64; TEMP 36.3; O2SAT 98; BMI 24.6
== END 2025-08-24 15:58 | disposition home or self-care (01) ==
LOC: HO.HMCH 14:39
PROVIDERS: PCP Physician Assistant; Visit Provider Physician Assistant
DX: Z00.00 Encounter for general adult medical examination without abnormal findings (principal); L30.9 Dermatitis, unspecified; H61.23 Impacted cerumen, bilateral; Z23 Encounter for immunization

== ENCOUNTER → 2025-08-24 14:38 | Outpatient (BNVA) | payer BC, SELFPAY | PROVIDERS: PCP Physician Assistant; Visit Provider Physician Assistant | DX: Z23 Encounter for immunization (principal); H61.23 Impacted cerumen, bilateral | CPT/HCPCS: 69210; 90471; 90715 ==